=== PATIENT | male | born 1985 | race African-American/Black ===

== ENCOUNTER 2017-01-06 12:44 | Inpatient (IN) | payer SELFPAY ==
[~2017-01-06] VITALS: Ht 185.4 cm; Wt 63.2 kg
[2017-01-06 16:20] VITALS: BP 126/81; PULSE 70; RESP 20; TEMP 97.8; O2SAT 99
[2017-01-06] MEDS ORDERED: cloNIDine HCL 0.1 MG TAB PO PRN (17:00)
[2017-01-06] MEDS ORDERED: BENZTROPINE MESYLATE 1 MG TAB PO PRN (17:00)
[2017-01-06] MEDS ORDERED: ACETAMINOPHEN 325 MG TAB PO PRN (17:00)
[2017-01-06] MEDS ORDERED: MAGNESIUM HYDROXIDE SUSP 30 ML CUP PO PRN (17:00)
[2017-01-06] MEDS ORDERED: BENZTROPINE MESYLATE 2 MG/2 ML VIAL IM PRN (17:00)
[2017-01-06] MEDS ORDERED: diphenhydrAMINE HCL 50 MG CAP - HS PRN PO (17:00)
[2017-01-06] MEDS ORDERED: ALUMINUM/MAGNESIUM/SIMETH 30 ML CUP PO PRN (17:00)
[2017-01-06] MEDS ORDERED: hydrOXYzine HCL 50 MG TAB PO PRN (17:00)
[2017-01-06] MEDS ORDERED: REMOVE OLD NICOTINE PATCH T-DERMAL SCH (21:00)
[2017-01-07] MEDS ORDERED: NICOTINE 21 MG/24 HR PATCH T-DERMAL SCH (09:00)
--- NOTE | 2017-01-07 09:07 | HHI.HP ---
Provisional Diagnosis Admission Date Jan 06, 2017 at 14:10 [place] I. 1. Malingering for chcf 2. Polysubstance abuse [place] II. Deferred [place] V. GAF 60 Certification of Person's Competence To Provide Express and Informed Consent I have personally examined Kong Arroyo , a person being served at [facility] on, Jan 07, 2017 08:48. Express and informed consent means consent voluntarily given in writing, by a competent person, after sufficient explanation and disclosure of the subject matter involved to enable the person to make a knowing and willful decision without any element of force, fraud, deceit, duress, or other form of constraint or coercion. This person is 18 years of age or older, is not now known to be incompetent to consent to treatment with a guardian advocate, and does not have a health care surrogate or proxy currently making medical treatment decisions. I have found this person to be one of the following: [x] Competent to provide express and informed consent, as defined above, for voluntary admission to this facility and is competent to provide express and informed consent for treatment. He/she has the consistent capacity to make well reasoned, willful, and knowing decisions concerning his or her medical or mental health treatment. The person fully and consistently understands the purpose of the admission for examination/placement and is fully capable of personally exercising all rights assured [place] Incompetent to provide express and informed consent to voluntary admission, and this is incompetent to provide express and informed consent to treatment. The person must be transferred to involuntary status and a petition for a guardian advocate filed with the Circuit Court. [] Refusing to provide express and informed consent to voluntary admission but is competent to provide express and informed consent for treatment. The person must be discharged or transferred to involuntary status. Form shall be completed within 24 hours of a person's arrival at the receiving facility and filed in the clinical record of each person: 1. Admitted on a voluntary basis 2. Permitted to provide express and informed consent to his/her own treatment 3. Allowed to transfer from involuntary to voluntary status 4. Prior to permitting a person to consent to his or her own treatment after having been previously found incompetent to consent to treatment. History of Present Illness Capacity: Has Capacity HPI Mr. Navarrete is a 31 year-old male with no reported history of psychiatric diagnoses who presents in transfer from outside hospital under a Quach act. Reviewing the documentation from outside hospital I note that the ED provider indicates that the patient "request[ed] police to be admitted to snf or placed on a Quach act because he was tired of being on the streets." Patient's urine toxicology at outside hospital was positive for cocaine and cannabinoids. Reviewing our own electronic medical record, it appears this is patient's first visit to [facility]. Patient seen and examined. Chart reviewed. Case discussed with nursing staff. No behavioral issues overnight. No evidence of suicidality or homicidality on the inpatient unit. On my examination today, the patient is calm. He is requesting to be discharged today, "I need an ID. I need you to get me into a chcf. I wanna get out of here today. You got my clothes? I need them washed." He denies any issues with mood, and I can elicit no depressive or hypomanic/manic symptoms. He says that he malingered suicidal ideation to the police officers because he was trying to get out of [place] because there are some unsavory people after him there. He denies any suicidal or homicidal ideation, intent or plan on direct questioning and contracts for safety. He denies any audiovisual hallucinations, and I can elicit no delusional beliefs. The remainder of the psychiatric ROS is negative. Past psychiatric history: The patient denies a history of psychiatric diagnosis. He says that he was recently hospitalized at facility in [place] under similar circumstances. He denies any history of esther jim suicide attempts but says that he once thought about shooting himself with a gun. Family history: The patient denies any family history of serious mental illness or suicide. Chemical dependency history: The patient reports use of cocaine and cannabis. Denies any other substance use. Social history: The patient is single with no children. He is presently homeless. He has an 11th grade education. He doesn't work. He denies any access to guns or firearms. He endorses a history of legal problems but denies any active legal issues. Believes in God. Patient declines to provide consent for us to obtain collateral from mother. Review of Systems Except as stated in HPI: all other systems reviewed are Neg Past Psych History Psychological trauma history No reported trauma history to me Violence risk - others (6 mos) Lower imminent risk. Denies homicidal ideation. No evidence of mental illness that might increase risk for violence. Substance use is a chronic risk factor. Violence risk - self (6 mos) Lower imminent risk. Denies suicidal ideation. Denies history of suicide attempts. Denies family history of suicide. No evidence of any mental illness process that might increase risk for suicide. Substance use is chronic risk factor here again. Substance Abuse History Drugs/Alcohol past 12 months See above Past Family Social History Coded Allergies: No Known Allergies (Unverified , 01/06/17) Past Medical History See electronic medical record Current Medications Medications (Trade) Dose Ordered Sig/Hernandez Route Start Time Stop Time Status Last Admin (Atarax) 50 mg Q6H PRN PO 01/06/17 17:00 (Cogentin) 1 mg Q12H PRN PO 01/06/17 17:00 (Cogentin Inj) 1 mg Q12H PRN IM 01/06/17 17:00 (Benadryl) 50 mg HS PRN PO 01/06/17 17:00 (Tylenol) 650 mg Q4H PRN PO 01/06/17 17:00 (Milk Of Magnesia Liq) 30 ml DAILY PRN PO 01/06/17 17:00 (Mag-Al Plus Susp Liq) 30 ml Q6H PRN PO 01/06/17 17:00 (Habitrol 21 Mg Patch.24 Hr) 1 patch DAILY T-DERMAL 01/07/17 09:00 Miscellaneous Information 1 HS T-DERMAL 01/06/17 21:00 (Catapres) 0.1 mg Q8H PRN PO 01/06/17 17:00 (Pneumovax-23 Inj) 25 mcg ONCE ONCE IM 01/07/17 10:00 01/07/17 10:01 Family History See above Social History See above Patient's Strengths (min. 2) In a monitored setting. Verbally fluent. Physical Exam Physical exam completed by referring hospital. On my examination today, the patient appears to be in no acute physical distress. No motor abnormalities noted. Labs and vitals reviewed: Vital Signs Vital Signs Date Time Temp Pulse Resp B/P Pulse Ox O2 Delivery O2 Flow Rate FiO2 01/06/17 16:20 97.8 70 20 126/81 99 Lab Results Laboratories from outside hospital reviewed: I note potassium was 3.0. Hemoglobin was 12.6. White blood cell count 14. Toxicology positive for cocaine and cannabinoids. QTC 443 ms. Mental Status Examination Patient is in hospital attire. Patient is well groomed. He is maintaining basic hygiene and appears to be attending to basic needs. He does have 2 teardrop tattoos underneath his right eyelid. Patient is awake and alert and oriented to person and hospital at least. No evidence of delirium. No motor abnormalities appreciated. Speech is within normal limits for rate, tone, volume. Language and fund of knowledge average. Focus and concentration intact. Memory grossly intact on clinical exam. Mood is fair. Affect is full and reactive. Thought processes linear. No delusions elicited. Denies audiovisual hallucinations and does not appear internally stimulated. Denies suicidal or homicidal ideation, intent, or plan and contracts for safety. Insight and judgment likely chronically poor. Assessment & Plan Problem List: (1) Malingering ICD Code: Z76.5 (2) Polysubstance abuse ICD Code: F19.10 Assessment & Plan This is a 31-year-old male with psychiatric history as detailed above who presents in transfer from outside hospital under a Quach act. Patient reportedly told the officer he wanted to either be admitted to snf or be placed under a Quach act to get off the streets. He seems primarily focused on getting into a chcf here as well as having his clothes laundered. He does describe having some people out to get him in the area where he is from, but this belief does not seem delusional in context. There is no evidence of any unstable mental illness as defined under the Quach act. He denies any suicidal or homicidal ideation. He appears to be attending to his basic needs. He is requesting discharge from the hospital today. Synthesizing the above information and based on the available evidence, I infant teacher that the patient does not presently meet the Quach act criteria. I have lifted the Quach act. Since he is declining voluntary psychiatric hospitalization, I have no choice therefore but to order his discharge to self in stable condition. Counselor to provide appropriate referrals for mental health counseling as well as for chemical dependency evaluation and treatment and homeless resources. Patient is also to follow-up with primary care. I've ordered follow-up laboratories, a CBC and BMP. I have counseled the patient regarding warning signs for need to return to the psychiatric emergency room as part of a general safety plan. No prescriptions on discharge. Please note this document serves also as my discharge summary. Request HC Surrog/Guard Advoc?: No Jose Rockwell MD Jan 07, 2017 09:07
[2017-01-07] MEDS ORDERED: PNEUMOCOCCAL POLYVALENT INJ 25 MCG/0.5 ML SYR IM ONE (10:00)
== END 2017-01-07 11:05 | disposition home or self-care (01) | DRG 951 ==
LOC: H270 14:10
PROVIDERS: ADMIT Psychiatry & Neurology Psychiatry; ATTEND Psychiatry & Neurology Psychiatry
DX: Z76.5 Malingerer [conscious simulation] (principal); F14.10 Cocaine abuse, uncomplicated; F12.10 Cannabis abuse, uncomplicated; Z59.0 Homelessness